=== PATIENT | male | born 2000 | race Caucasian/White ===

== ENCOUNTER 2022-08-13 14:11 | Emergency (ER) | payer OTHER, BC, SELFPAY ==
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
[2022-08-13 14:17] VITALS: BP 128/67; PULSE 87; RESP 16; TEMP 36.8; O2SAT 99
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
== END 2022-08-13 16:33 | disposition home or self-care (01) ==
PROVIDERS: Emergency Provider Family Medicine; PCP Physician Assistant
DX: S62.307A Unspecified fracture of fifth metacarpal bone, left hand, initial encounter for closed fracture (principal); W22.8XXA Striking against or struck by other objects, initial encounter
CPT/HCPCS: 73130; 99283

== ENCOUNTER 2023-09-24 14:41 | Outpatient (CLI) | payer OTHER, SELFPAY ==
--- NOTE | ~2023-09-24 | US_ITS ---
EXAMINATION: US soft tissue lower back DATE: 09/24/2023 15:01 INDICATION: Subcutaneous mass on back. TECHNIQUE: Multiple grayscale and Doppler ultrasound images of the lower back were obtained. COMPARISON: Lumbar spine radiographs 09/24/2023 FINDINGS: There is no abnormal mass in the patient's area of concern in the lower back. IMPRESSION: 1. No abnormal mass in the patient's area of concern in the lower back. Reviewed, dictated and finalized at location E. WHEELER
--- NOTE | ~2023-09-24 | XR_ITS ---
XR lumbar spine 2-3V DATE: 09/24/2023 15:05 INDICATION: Right low back pain radiating to right lower extremity occasionally TECHNIQUE: AP, lateral, coned lateral lumbosacral views COMPARISON: None FINDINGS: Normal alignment of the lumbar spine. No fracture or spondylolisthesis. No bone destructi on. The pedicles are intact. Lumbar and lumbosacral interspaces are preserved. The sacroiliac joints are intact. IMPRESSION: No significant abnormality Reviewed, dictated and finalized at location B. TECHNICIAN IMPRESSION: No significant abnormality
== END 2023-09-24 14:42 | disposition home or self-care (01) ==
LOC: CHSIMG 14:42
PROVIDERS: PCP Physician Assistant; Visit Provider Physician Assistant
DX: R22.2 Localized swelling, mass and lump, trunk (principal)
CPT/HCPCS: 72100; 76705

== ENCOUNTER 2025-03-01 11:00 | Emergency (ER) | payer OTHER, SELFPAY ==
--- NOTE | ~2025-03-01 | XR_ITS ---
XR lumbar spine 2-3V 03/01/2025 11:18 Indication: Low back pain Procedure: 3 views lumbar spine Comparison: 09/24/2023 Findings: Vertebral body heights are maintained. No fracture, subluxation or dislocation. No evidence for spondylolysis or spondylolisthesis. Impression: 1: No significant abnormality of the lumbar spine. Reviewed, dictated and finalized at location B. Impression: 1: No significant abnormality of the lumbar spine.
[2025-03-01 11:01] VITALS: BP 129/89; PULSE 59; RESP 18; TEMP 36.8; O2SAT 99
[2025-03-01] MEDS: KETOROLAC (*BKC) 60 MG/2 ML VIAL IM (11:23)
--- NOTE | 2025-03-01 11:30 | ED_ITS ---
HPI - Back Pain/Injury General Chief Complaint: Back Pain/Injury Stated Complaint: back pain Time Seen by Provider: 03/01/25 11:06 Source: patient and family Mode of arrival: ambulatory Limitations: no limitations History of Present Illness HPI Narrative: This is a 24-year-old male with no significant past medical history presents with lower back pain with some right paravertebral tenderness with palpation with no numbness or tingling radiating down extremities. Patient was lifting [id number] and injured his lower back and was recommended by his chiropractor to be evaluated by the emergency department. MD elicited complaint: back pain Onset (ago): day(s) Timing: constant Severity: severe Pain scale (0-10): 8 Quality: aching and spasming Location: lumbar spine Radiation: none Exacerbating factors: movement and sitting upright Relieving factors: immobilization Related Data Allergies Allergy/AdvReac Type Severity Reaction Status Date / Time No Known Allergies Allergy Verified 03/01/25 11:03 Review of Systems Review of Systems: All systems reviewed & are unremarkable except as noted in HPI and below PMFSH Past Medical History Medical History Patient denies medical problems Exam Const: General: healthy appearing and no acute distress Nutritional Appearance: well nourished Orientation/consciousness: patient oriented x3 Limitations: no limitations Neck: Neck: normal visual inspection, no lymphadenopathy and no meningeal signs Chest: Chest palpation & inspection: normal inspection of the chest Resp: Effort & Inspection: normal respiratory effort Auscultation: clear to auscultation bilaterally Cardio: Rate: regular rate Rhythm: regular rhythm GI: GI Palp: Yes Soft to palpation Auscultation: normal bowel sounds : General: Yes bladder normal to palpation Neuro: General: patient oriented x3, moves all extremities, no meningeal signs and no focal motor deficits Extrem: Other: low back pain L5 right paravertebral tenderness with palpation with a negative straight leg raising test. Course Course Emergency Course: X-ray performed shows no acute abnormalities, patient received a 60mg IM Toradol after reassessment patient's pain level has improved. Vital Signs Vital signs: Vital Signs Temperature 36.8 C 03/01/25 11:01 Pulse Rate 59 L 03/01/25 11:01 Respiratory Rate 18 03/01/25 11:01 Blood Pressure 129/89 03/01/25 11:01 Pulse Oximetry 99 03/01/25 11:01 Oxygen Delivery Room Air 03/01/25 11:01 Temperature 36.8 C 03/01/25 11:01 Pulse Rate 59 L 03/01/25 11:01 Respiratory Rate 18 03/01/25 11:01 Blood Pressure 129/89 03/01/25 11:01 Pulse Oximetry 99 03/01/25 11:01 Oxygen Delivery Room Air 03/01/25 11:01 Critical Care Time Critical Care Time Critical Care Time: No Discharge Plan Discharge Clinical Impression: Strain of lumbar region Qualifiers: Encounter type: initial encounter Qualified Code(s): S39.012A - Strain of muscle, fascia and tendon of lower back, initial encounter Patient Disposition: Home Condition: Stable Instructions: Antibiotic Form, Acute Low Back Pain (ED) Additional Instructions: Advised patient to take medication as prescribed and to follow with primary care physician if symptoms persist or worsen. Patient Language: Armenian Prescriptions: New naproxen 500 mg tablet 500 mg PO BID Qty: 14 0RF cyclobenzaprine 10 mg tablet 10 mg PO TID Qty: 20 0RF Follow-up/Referrals: Lilli,BRIDGETT Stern [Primary Care Provider] - Time of Disposition: 11:34
--- OUTSIDE RECORDS SUMMARY | 2025-03-01 12:01 | XMS_ITS | Encounter Summary ---
Author Organization [facility] Address [address] [place] [address] Care Team Providers Care Access Registrar Name Role Phone Unavailable Primary Care Provider Unavailabl e Encounter Details Date Type Department Care Team (Latest Contact Info) Description 08/01/2007 Outpatient Historical HIS [facility] Sav Messer Conductive Hearing Loss, Unilateral (Primary Dx) Social History Tobacco Use Types Packs/Day Years Used Date Smoking Tobacco: Never Assessed Sex and Gender Information Value Date Recorded Sex Assigned at Not on file Legal Sex Male 5:02 AM HANDY MAN Gender Identity Not on file Sexual Orientation Not on file documented as of this encounter Plan of Treatment Not on file documented as of this encounter Visit Diagnoses Diagnosis Conductive hearing loss, unilateral- Primary documented in this encounter
--- OUTSIDE RECORDS SUMMARY | 2025-03-01 12:01 | XMS_ITS | Clinical Summary ---
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
--- OUTSIDE RECORDS SUMMARY | 2025-03-01 12:01 | XMS_ITS | Referral Summary ---
Author Organization [facility] Address [address] [place] [address] Care Team Providers Care Revenue Officer Name Role Phone Oscar Styles MD Primary Care Provider [phone] Allergies No known active allergies Medications naproxen sodium 220 mg capsule Take by mouth Active ibuprofen (ADVIL,MOTRIN) 400 mg tablet Take by mouth as needed for pain Active Active Problems Problem Noted Date Diagnosed Date Elevated serum creatinine 05/06/2021 Vomiting without nausea 04/17/2021 Closed fracture of left ankle 10/31/2019 Injury of knee, right, initial encounter 020 Migraine headache 02/04/2015 Social History Tobacco Use Types Packs/Day Years Used Date Smoking Tobacco: Never Smokeless Tobacco: Never Alcohol Use Standard Drinks/Week Comments No 0 (1 standard drink = 0.6 oz pur e alcohol) Sex and Gender Information Value Date Recorded Sex Assigned at Not on file Legal Sex Male 5:10 AM SERVICING REP Gender Identity Not on file Sexual Orientation Not on file Last Filed Vital Signs Vital Sign Reading Time Taken Comments Blood Pressure 127/77 11/09/2022 9:57 AM SERVICING REP Pulse 74 11/09/2022 9:57 AM SERVICING REP Temperature 37.2 C (99 F) 05/06/2021 12:30 PM CDT Respiratory Rate 18 05/06/2021 12:30 PM CDT Oxygen Saturation 99% 05/06/2021 12:30 PM CDT Inhaled Oxygen Concentration - - Weight 86.2 kg (190 lb) 11/09/2022 9:57 AM SERVICING REP Height 177.8 cm (5' 10) 11/09/2022 9:57 AM SERVICING REP Body Mass Index 27.26 11/09/2022 9:57 AM SERVICING REP Plan of Treatment Not on file Insurance [facility] HMO IDPA [facility] CHOICE PLUS [facility] HMO/PPO Address: [address] [address] [place] [address] [employer] IDPA IDPA Advance Directives For more information, please contact: [phone] Documents on File Type Date Recorded Patient Drug Abuse Counselor Expl anation ADVANCE DIRECTIVE 04/28/2021 11:42 AM ADVANCE DIRECTIVE 04/28/2021 11:23 AM Care Teams Revenue Officer Relationship Specialty Start Date End Date Oscar Styles MD PCP - General Family Medicine 04/17/21
--- OUTSIDE RECORDS SUMMARY | 2025-03-01 12:01 | XMS_ITS | Encounter Summary ---
Author Organization [facility] Address 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
--- OUTSIDE RECORDS SUMMARY | 2025-03-01 12:01 | XMS_ITS | Clinical Summary ---
Author Organization [facility] Address [address] [place] [address] Care Team Providers Care Hand Button Splitter Name Role Phone Oscar Styles MD Primary Care Provider [phone] Sudheer Mendez MD Unavailable Source Comments [facility],non-owned Affiliates and Associated Physician Practices is amultiple site organization consisting of ambulatory clinics and hospital sitesin [place], [place], [place] and [place]. This disclosure is being madepursuant to the Care Everywhere program and may not contain all information available regarding this patient. Last updated 18.[facility] [employer] Allergies No known active allergies Medications * Be aware that medications may not be up to date on this document. Alwaysverify current medications with the patient. Naproxen Sodium 220 MG Active Active Problems Problem Noted Date Diagnosed Date Serum creatinine raised 05/06/2021 Vomiting without nausea 04/17/2021 Closed fracture of left ankle 10/31/2019 Injury of knee, right, initial encounter 020 Migraine headache 02/04/2015 Social History Tobacco Use Types Packs/Day Years Used Date Smoking Tobacco: Never Smokeless Tobacco: Never Sex and Gender Information Value Date Recorded Sex Assigned at Not on file Legal Sex Male 9:07 AM CDT Gender Identity Not on file Sexual Orientation Not on file Last Filed Vital Signs Vital Sign Reading Time Taken Comments Blood Pressure - - Pulse - - Temperature - - Respiratory Rate - - Oxygen Saturation - - Inhaled Oxygen Concentration - - Weight 76.2 kg (168 lb) 08/01/2021 12:20 PM SOLARIS ADMINISTRATOR Height 175.3 cm (5' 9) 08/01/2021 12:20 PM SOLARIS ADMINISTRATOR Body Mass Index 24.81 08/01/2021 12:20 PM SOLARIS ADMINISTRATOR Plan of Treatment Health Maintenance Due Date Last Done Comments HIV SCREENING 2017 HPV VACCINE (1 - Male 3-dose series) 2017 MENINGOCOCCAL (Group B) VACC INE SHARED DECISION-MAKING (1 of 2 - Standard) 2018 HEPATITIS C SCREENING 08/11/2020 DTAP/TDAP/TD VACCINES (1 - Tdap) 2021 HEPATITIS B VACCINE (1 of 3 - 19+ 3-dose series) 2021 COVID-19 VACCINE (1 - 2023-2 5 season) 2024 DEPRESSION SCREENING 09/20/2024 INFLUENZA VACCINE (Season Ended) 2025 ZOSTER VACCINE (1 of 2) 2052 HIB VACCINE Aged Out No longer eligi ble based on patient's age to complete this topic MENINGOCOCCAL GROUPS A/C/Y/W VACCINE Aged Out No longer eligible b ased on patient's age to complete this topic PNEUMOCOCCAL VACCINE Aged Out No long er eligible based on patient's age to complete this topic Insurance AETNA MEDICAID [facility] MEDICAID - [facility] AETNA Care Teams Hand Button Splitter Relationship Specialty Start Date End Date Oscar Styles MD [address] [place] [phone] PCP - General Family Medicine 06/09/19 Sudheer Mendez MD [address] [place] [phone] Orthopedic Surgery 06/09/19
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
--- OUTSIDE RECORDS SUMMARY | 2025-03-01 12:01 | XMS_ITS | Encounter Summary ---
Author Organization [facility] Address [address] [place] [address] Care Team Providers Care Forestry And Wildlife Manager Name Role Phone Oscar Styles MD Primary Care Provider Encounter Details Date Type Department Care Team (Late st Contact Info) Description 05/05/2021 Telephone [facility] [place] [address] Malia Vann, RDMS Social History Tobacco Use Types Packs/Day Years Used Date Smoking Tobacco: Never Smokeless Tobacco: Never Alcohol Use Standard Drinks/Week Comments No 0 (1 standard drink = 0.6 oz pur e alcohol) Sex and Gender Information Value Date Recorded Sex Assigned at Not on file Legal Sex Male 5:10 AM TRANSFER DRIVER Gender Identity Not on file Sexual Orientation Not on file documented as of this encounter Plan of Treatment Not on file documented as of this encounter Visit Diagnoses Not on filedocumented in this encounter Care Teams Forestry And Wildlife Manager Relationship Specialty Start Date End Date Oscar Styles MD PCP - General Family Medicine 04/17/21 documented as of this encounter
--- OUTSIDE RECORDS SUMMARY | 2025-03-01 12:24 | XMS_ITS | Clinical Summary ---
Author Organization [facility] Address [address] [place] [address] Care Team Providers Care Production Control Supervisor Name Role Phone Oscar Styles MD Primary Care Provider Sudheer Mendez MD Unavailable Source Comments [facility],non-owned Affiliates and Associated Physician Practices is amultiple site organization consisting of ambulatory clinics and hospital sitesin [place], [place], [place] and [place]. This disclosure is being madepursuant to the Care Everywhere program and may not contain all information available regarding this patient. Last updated 18.[facility] Boost[employer] Allergies No known active allergies Medications * [...] 76.2 kg (168 lb) 08/01/2021 12:20 PM PSYCHOLOGISTS Height 175.3 cm (5' 9) 08/01/2021 12:20 PM PSYCHOLOGISTS Body Mass Index 24.81 08/01/2021 12:20 PM PSYCHOLOGISTS Plan of Treatment Health Maintenance Due Date [...] age to complete this topic Insurance A[facility]NA [facility] Address[facility] [id number] [place] [address] MEDICAID [facility] MEDICAID - [facility] AETNA Care Teams Production Control Supervisor Relationship Specialty Start Date End Date Oscar Styles MD [address] [place] [phone] PCP - General Family Medicine 06/09/19 Sudheer Mendez MD [address] [place] [phone] Orthopedic Surgery 06/09/19
--- OUTSIDE RECORDS SUMMARY | 2025-03-01 12:24 | XMS_ITS | Encounter Summary ---
Author Organization [facility] Address 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
--- OUTSIDE RECORDS SUMMARY | 2025-03-01 12:24 | XMS_ITS | Encounter Summary ---
Author Organization [facility] Address [address] [place] [address] Care Team Providers Care Plant Supervisor Name Role Phone Unavailable Primary Care Provider Unavailabl e Encounter Details Date Type Department Care Team (Latest Contact Info) Description 05/25/2007 Outpatient Historical [facility] TAZ Baker, Sav Unspecified Hearing Loss (Primary Dx) Social History Tobacco Use Types Packs/Day Years Used Date Smoking Tobacco: Never Assessed Sex and Gender Information Value Date Recorded Sex Assigned at Not on file Legal Sex Male 5:[address] Gender Identity Not on file Sexual Orientation Not on file documented as of this encounter Plan of Treatment Not on file documented as of this encounter Visit Diagnoses Diagnosis Unspecified hearing loss- Primary documented in this encounter
--- OUTSIDE RECORDS SUMMARY | 2025-03-01 12:24 | XMS_ITS | Clinical Summary ---
Author Organization [facility] Address [address] Attn: Epic Prelude ADT [place] [address] Care Team Providers Care Electric Sign Assembler Name Role Phone Unavailable Primary Care Provider Unavailabl e Social History Tobacco Use Types Packs/Day Years Used Date Smoking Tobacco: Never Assessed Sex and Gender Information Value Date Recorded Sex Assigned at Not on file Legal Sex Male 5:02 AM HSE COORDINATOR Gender Identity Not on file Sexual Orientation Not on file Plan of Treatment Health Maintenance Due Date Last Done Comments HPV VACCINES (1 - Male 3-dose series) 2017 DTAP/TDAP/TD VACCINES (1 - Tdap) 2021 HEPATITIS B VACCINES (1 of 3 - 19+ 3-dose series) 07/22 INFLUENZA VACCINE (#1) 2024
--- OUTSIDE RECORDS SUMMARY | 2025-03-01 12:24 | XMS_ITS | Encounter Summary ---
Author Organization [facility] Address [address] [place] [address] Care Team Providers Care Client Technologies Specialist Name Role Phone Oscar Styles MD Primary Care Provider Encounter Details Date Type Department Care Team (Late st Contact Info) Description 05/05/2021 Telephone [facility] [place] [address] Malia Vann, RDMS Social History Tobacco Use Types Packs/Day Years Used Date Smoking Tobacco: Never Smokeless Tobacco: Never Alcohol Use Standard Drinks/Week Comments No 0 (1 standard drink = 0.6 oz pur e alcohol) Sex and Gender Information Value Date Recorded Sex Assigned at Not on file Legal 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
--- OUTSIDE RECORDS SUMMARY | 2025-03-01 12:24 | XMS_ITS | Referral Summary ---
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 Gender Identity Not on file Sexual Orientation Not on file Last Filed Vital Signs Vital Sign Reading Time Taken Comments Blood Pressure 127/77 11/09/2022 9:57 AM PRINTED CIRCUIT BOARD PCB DRAFTSMAN Pulse 74 11/09/2022 9:57 AM PRINTED CIRCUIT BOARD PCB DRAFTSMAN Temperature 37.2 C (99 F) 05/06/2021 12:30 PM CDT Respiratory Rate 18 05/06/2021 12:30 PM CDT Oxygen Saturation 99% 05/06/2021 12:30 PM CDT Inhaled Oxygen Concentration - - Weight 86.2 kg (190 lb) 11/09/2022 9:57 AM PRINTED CIRCUIT BOARD PCB DRAFTSMAN Height 177.8 cm (5' 10) 11/09/2022 9:57 AM PRINTED CIRCUIT BOARD PCB DRAFTSMAN Body Mass Index 27.26 11/09/2022 9:57 AM PRINTED CIRCUIT BOARD PCB DRAFTSMAN Plan of Treatment Not on file Insurance [facility] HMO IDPA [facility] CHOICE PLUS [employer] IDPA IDPA Advance Directives For more information, please contact: [phone] Documents on File Type Date Recorded Patient Center Director Expl anation ADVANCE DIRECTIVE 04/28/2021 11:42 AM ADVANCE DIRECTIVE 04/28/2021 11:23 AM Care Teams Hook Loader Relationship Specialty Start Date End Date Oscar Styles MD PCP - General Family Medicine 04/17/21
--- OUTSIDE RECORDS SUMMARY | 2025-03-01 12:24 | XMS_ITS | Clinical Summary ---
Author Organization [facility] Address [address] [place] [address] Care Team Providers Care Hand Crown Pouncer Name Role Phone Oscar Styles MD Primary [...] on file Legal Sex Male 5:10 AM FERRY TERMINAL AGENT Gender Identity Not on file Sexual Orientation Not on file Obstetrics History Last Filed Vital Signs Vital Sign Reading Time Taken Comments Blood Pressure 127/77 11/09/2022 9:57 AM FERRY TERMINAL AGENT Pulse 74 11/09/2022 9:57 AM FERRY TERMINAL AGENT Temperature 37.2 C (99 F) 05/06/2021 12:30 PM CDT Respiratory Rate 18 05/06/2021 12:30 PM CDT Oxygen Saturation 99% 05/06/2021 12:30 PM CDT Inhaled Oxygen Concentration - - Weight 86.2 kg (190 lb) 11/09/2022 9:57 AM FERRY TERMINAL AGENT Height 177.8 cm (5' 10) 11/09/2022 9:57 AM FERRY TERMINAL AGENT Body Mass Index 27.26 11/09/2022 9:57 AM FERRY TERMINAL AGENT Plan of Treatment Health Maintenance Due Date [...] patient's age to complete this topic Insurance [facility] HMO IDPA [facility] CHOICE PLUS [employer] IDPA IDPA Advance Directives For more information, please contact: [phone] Documents on File Type Date Recorded Patient Dragger Expl anation ADVANCE DIRECTIVE 04/28/2021 11:42 AM ADVANCE DIRECTIVE 04/28/2021 11:23 AM Care Teams Hand Crown Pouncer Relationship Specialty Start Date End Date Oscar Styles MD PCP - General Family Medicine 04/17/21
== END 2025-03-01 11:44 | disposition home or self-care (01) ==
PROVIDERS: Emergency Provider Emergency Medicine; PCP Physician Assistant
DX: S39.012A Strain of muscle, fascia and tendon of lower back, initial encounter (principal); X58.XXXA Exposure to other specified factors, initial encounter
CPT/HCPCS: 72100; 96372; 99283; J1885